=== PATIENT | male | born 1995 | race Caucasian/White ===

== ENCOUNTER 2022-07-31 13:36 | Emergency (ER) | payer SELFPAY ==
[~2022-07-31] VITALS: Ht 170.2 cm; Wt 75.0 kg
[2022-07-31] MEDS ORDERED: IBUPROFEN 600MG TABLET PO ONE (17:15)
[2022-07-31 19:56] VITALS: BP 139/72
== END 2022-07-31 20:12 | disposition home or self-care (01) ==
LOC: ER 13:36
DX: R07.89 Other chest pain (principal)
CPT/HCPCS: 71045; 99283